=== PATIENT | female | born 1970 | race Caucasian/White ===

== ENCOUNTER 2017-07-30 10:30 | Inpatient (IN) | payer OTHER ==
[2017-07-30 12:32] VITALS: BMI 45.8
[2017-08-02] MEDS ORDERED: Fentanyl 100 MCG/2 ML VIAL ONE ×3 (06:31→14:08)
[2017-08-02] MEDS ORDERED: CEFAZOLIN/Water 2 GM/20 ML SYRINGE ONE (06:33)
[2017-08-02] MEDS ORDERED: Lidocaine 1% PF 5 ML VIAL ONE (06:51)
[2017-08-02] MEDS ORDERED: Succinylcholine Chloride 20 MG/ML 10 ml SYRINGE FS ONE (06:51)
[2017-08-02] MEDS ORDERED: PROPOFOL 200 MG/20 ML VIAL ONE (06:51)
[2017-08-02] MEDS ORDERED: Ketorolac Tromethamine 30 MG/ML VIAL ONE (06:51)
[2017-08-02] MEDS ORDERED: Ondansetron HCl/PF 4 MG/2 ML Vial ONE (06:51)
[2017-08-02] MEDS ORDERED: Metoclopramide HCl 10 MG/2 ML VIAL ONE (06:51)
[2017-08-02] MEDS ORDERED: Dexamethasone 20 MG/5 ML VIAL ONE (06:51)
[2017-08-02] MEDS ORDERED: PHENYLEPHRINE-NS 100 MCG/ML 10 ML SYRINGE ONE (06:51)
[2017-08-02] MEDS ORDERED: ePHEDrine/0.9% NaCl/PF SYRINGE 50 mg/10 ml ONE (06:51)
[2017-08-02] MEDS ORDERED: Fentanyl 100 MCG/2 ML VIAL SLOW IVP PRN (12:08)
[2017-08-02] MEDS ORDERED: HYDROcodone/Acetaminophen 10/325 mg Tablet PO PRN (12:08)
[2017-08-02] MEDS ORDERED: Bisacodyl 10 MG SUPP PR PRN (12:08)
[2017-08-02] MEDS ORDERED: Ondansetron HCl/PF 4 MG/2 ML Vial IV PRN (12:08)
[2017-08-02] MEDS ORDERED: PHARMACY TO DOSE ANTIBIOTICS FS SCH (12:15)
[2017-08-02] MEDS ORDERED: TETANUS AND DIPHTHERIA TOX/PF 0.5 ML DISP.SYRIN IM SCH (12:15)
[2017-08-02] MEDS ORDERED: PHARMACY TO DOSE ANTIBIOTICS FS PRN (12:51)
[2017-08-02] MEDS ORDERED: Ondansetron HCl/PF 4 MG/2 ML Vial IVP PRN (13:07)
[2017-08-02] MEDS ORDERED: Promethazine HCl 25 MG/ML VIAL SLOW IVP PRN (13:07)
[2017-08-02] MEDS ORDERED: Promethazine HCl 25 MG/ML VIAL IM PRN (13:07)
--- NOTE | 2017-08-02 13:36 | RAD ---
INTRAOPERATIVE FLUOROSCOPY: HISTORY: Hardware removal. COMPARISON: None. FINDINGS: Intraoperative fluoroscopy is performed, and three images are provided for interpretation. There is internal fixation hardware along the proximal left femur. There is a screw in the distal le ft femur. IMPRESSION: Fluoroscopy as above. POS: DONYA
[2017-08-02] MEDS ORDERED: CEFAZOLIN/Water 2 GM/20 ML SYRINGE SLOW IVP SCH (14:00)
[2017-08-02] MEDS: CEFAZOLIN/Water 2 GM/20 ML SYRINGE SLOW IVP SCH (15:59)
[2017-08-02] MEDS: Morphine 4 MG/ML VIAL SLOW IVP PRN (16:18)
[2017-08-02] MEDS: Ketorolac Tromethamine 30 MG/ML VIAL IVP SCH (17:51)
[2017-08-02] MEDS: Cyclobenzaprine 10 MG TAB PO PRN (22:37)
[2017-08-03] MEDS: CEFAZOLIN/Water 2 GM/20 ML SYRINGE SLOW IVP SCH (00:15)
[2017-08-03] MEDS: Ketorolac Tromethamine 30 MG/ML VIAL IVP SCH ×4 (00:15→18:16)
[2017-08-03 06:26] LABS: #Lymphocytes 1.2 thou/uL (1.20-3.40); #Monocytes 0.9 thou/uL (0.11-0.59); #Neutrophils 6.2 thou/uL (1.40-6.50); %Basophils 0.2 % (0.0-1.0); %Lymphocytes 14.4 % (21.0-51.0); %Monocytes 10.8 % (0.0-10.0); %Neutrophils 74.7 % (42.0-75.0); Mean Corpuscular Hemoglobin 28.9 pg (27.0-31.0); Mean Corpuscular Volume 87.6 fl (81.0-99.0); Mean Platelet Volume 9.7 fL (7.4-10.4); Platelet Count 166 thou/uL (130-400); RBC Distribution Width 12.8 % (11.5-14.5); Red Blood Cell (RBC) Count 2.77 mill/uL (4.20-5.40); White Blood Cell (WBC) Count 8.3 thou/uL (4.8-10.8)
[2017-08-03 06:45] LABS: ALT (SGPT) 11 U/L (8-55); AST (SGOT) 18 U/L (5-34); Albumin 2.9 g/dL (3.5-5.0); Alkaline Phosphatase 73 U/L (40-150); Anion Gap 8 mmol/L (10-20); BUN (Urea Nitrogen) 15 mg/dL (7.0-18.7); Bilirubin, Total 0.2 mg/dL (0.2-1.2); Calc. Creatinine Clearance 193 mL/min (70-130); Calcium 8.3 mg/dL (7.8-10.44); Carbon Dioxide 26 mmol/L (22-29); Chloride 105 mmol/L (98-107); Estimated GFR-MDRD 78; Globulin 1.9 g/dL (2.4-3.5); Glucose 153 mg/dL (70-105); Potassium 4.1 mmol/L (3.5-5.1); Protein, Total 4.8 g/dL (6.0-8.3); Sodium 135 mmol/L (136-145)
[2017-08-03] MEDS: Acetaminophen 325 MG TAB PO PRN ×2 (09:25→21:05)
[2017-08-03] MEDS: Cyclobenzaprine 10 MG TAB PO PRN ×2 (09:26→21:04)
[2017-08-03] MEDS: Enoxaparin Sodium 30 MG/0.3 ML SYRINGE SC SCH (09:26)
--- NOTE | 2017-08-03 10:30 | CT ---
CT OF LEFT FEMUR: CLINICAL HISTORY: Prior operative fixation of proximal femur. Clinical concern for superimposed fracture. COMPARISON: There are no recent radiographs available for reference. Radiograph of left hip from 11/18/16 is refe renced. FINDINGS: The patient had a documented heavily comminuted proximal left femoral fracture October of 2016 which is now transfixed by plate and screw fixation which results in beam-hardening artifact and streak artif act limiting reliable evaluation at the fracture site. There is periosteal reaction of the proximal diaphysis of the femur and distally, there is multifocal fragmentation of the cortex of the mid to di stal femoral diaphysis. There is a solitary linear metallic density traversing the distal femoral di aphysis and within the adjacent soft tissues. Just distal to this radiopaque screw, there is further fragmentation of the cortex of the distal femoral metadiaphyseal region, just distally. There is a small wedge-shaped avulsed fracture medially. There is a lucent track from prior hardware at the dis blessing femur. Prominent degenerative change is noted at the knee. IMPRESSION: 1. Extensive hardware of the proximal femur transfixing patient's known prior heavily comminuted fra cture with limited visualization. Fracture lucencies of this region do persist as well as areas of p eriosteal reaction and heterotopic density. 2. There is an additional linear screw within the distal diaphysis with interposed multifocal cortic al fragmentation of the medial aspect of the femur throughout the mid to distal diaphysis as well as slight cortical comminution with wedge-shaped avulsive-appearing fracture fragment just distal, withi n the metadiaphyseal region. POS: DONYA
[2017-08-03] MEDS: Morphine 4 MG/ML VIAL SLOW IVP PRN (13:58)
[2017-08-03] MEDS ORDERED: traMADol HCl 50 MG TAB PO PRN (15:13)
[2017-08-03] MEDS: traMADol HCl 50 MG TAB PO PRN ×2 (18:18→23:15)
[2017-08-04 06:02] LABS: #Eosinphils 0.1 thou/uL (0.0-0.7); #Lymphocytes 1.6 thou/uL (1.20-3.40); #Monocytes 0.6 thou/uL (0.11-0.59); #Neutrophils 4.3 thou/uL (1.40-6.50); %Basophils 0.4 % (0.0-1.0); %Lymphocytes 24.1 % (21.0-51.0); %Monocytes 8.9 % (0.0-10.0); %Neutrophils 65.6 % (42.0-75.0); Hemoglobin 7.3 g/dL (12.0-16.0); Mean Corpuscular Hemoglobin 29.3 pg (27.0-31.0); Mean Corpuscular Volume 88.9 fl (81.0-99.0); Mean Platelet Volume 9.4 fL (7.4-10.4); Platelet Count 125 thou/uL (130-400); RBC Distribution Width 12.7 % (11.5-14.5); Red Blood Cell (RBC) Count 2.48 mill/uL (4.20-5.40); White Blood Cell (WBC) Count 6.5 thou/uL (4.8-10.8)
[2017-08-04] MEDS: traMADol HCl 50 MG TAB PO PRN ×2 (06:09→20:14)
[2017-08-04] MEDS: Cyclobenzaprine 10 MG TAB PO PRN ×2 (06:12→20:14)
[2017-08-04] MEDS: Acetaminophen 325 MG TAB PO PRN (10:46)
[2017-08-04] MEDS: Morphine 4 MG/ML VIAL SLOW IVP PRN ×2 (10:47→23:23)
[2017-08-04] MEDS: Enoxaparin Sodium 30 MG/0.3 ML SYRINGE SC SCH (10:55)
[2017-08-04] MEDS: Naproxen 500 MG TAB PO PRN (12:48)
[2017-08-04] MEDS ORDERED: Enoxaparin Sodium 30 MG/0.3 ML SYRINGE SC SCH (13:00)
[2017-08-05] MEDS: Naproxen 500 MG TAB PO PRN (04:35)
[2017-08-05 05:34] LABS: #Eosinphils 0.2 thou/uL (0.0-0.7); #Lymphocytes 1.8 thou/uL (1.20-3.40); #Monocytes 0.5 thou/uL (0.11-0.59); %Basophils 0.6 % (0.0-1.0); %Monocytes 8.5 % (0.0-10.0); %Neutrophils 54.9 % (42.0-75.0); Hemoglobin 7.3 g/dL (12.0-16.0); Mean Corpuscular HGB CONC 32.6 g/dL (32.0-36.0); Mean Corpuscular Hemoglobin 28.9 pg (27.0-31.0); Mean Corpuscular Volume 88.7 fl (81.0-99.0); Mean Platelet Volume 9.5 fL (7.4-10.4); Platelet Count 146 thou/uL (130-400); RBC Distribution Width 12.5 % (11.5-14.5); Red Blood Cell (RBC) Count 2.53 mill/uL (4.20-5.40); White Blood Cell (WBC) Count 5.5 thou/uL (4.8-10.8)
[2017-08-05] MEDS: Enoxaparin Sodium 30 MG/0.3 ML SYRINGE SC SCH (07:52)
[2017-08-05] MEDS: Cyclobenzaprine 10 MG TAB PO PRN ×3 (07:54→21:29)
[2017-08-05] MEDS: traMADol HCl 50 MG TAB PO PRN ×4 (07:54→21:30)
--- NOTE | 2017-08-05 09:04 | OP ---
DATE OF SURGERY: 08/02/2017 PREOPERATIVE DIAGNOSES: 1. 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 2. Retained left trochanteric fixation nail. POSTOPERATIVE DIAGNOSES: 1. 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 2. Retained left trochanteric fixation nail. SURGICAL PROCEDURE: 1. Left proximal femur valgus osteotomy with plating (maricel osteotomy). 2. SILVANA bone graft harvest, left femur. 3. Removal of left femoral TFN nail. ANESTHESIA: General. SURGEON: Dr. Abdullahi Trejo and Dr. Chu. IMPLANTS: Synthes 6-hole 150 degree DHS sideplate with 80-mm hip screw with the addition of a trocha nter stabilization plate. SPECIMEN: Explanted Synthes TFN discarded. BLOOD LOSS: 800 mL. DRAINS: Hemovac x1. COMPLICATIONS: Retained partial screw in distal femur with small diaphyseal defect from hardware rem oval. OUTCOME: Satisfactory. INDICATIONS: Ms. Morin is a pleasant 47-year-old lady, who is status post severe left proximal femur fracture with a large subtrochanteric fracture that extended up into a basicervical fracture that piedra d a very high Pauwel's angle. She has gone on to heal her subtrochanteric femur fracture, but has a nonunion of the basicervical neck fracture, which has been confirmed with CT scan. After discussion with patient including risks and benefits, we decided to proceed with a valgus osteotomy in hopes of improving the mechanical advantage to get compression across the femoral neck fracture site as well a s bone grafting to assist with healing. Informed consent has been obtained. I believe all questions have been answered. PROCEDURE IN DETAIL: The patient was brought to the operating room and a timeout performed and then general anesthesia induced. The patient was positioned in a right lateral decubitus position and the n a sterile prep and drape was performed of the left lower extremity. Next, a small incision was mad e distally at the distal cross lock screw site. This distal screw was broken; however, the head and lateral fragment of the screw could be removed and was removed. This wound was then irrigated and cl osed with Vicryl and staple closure. Next, an incision was made proximally and basically the most pr oximal scar from her hardware removal was extended distally to incorporate the middle scar. This res ulted in an incision site of approximately 10 inches in length. After skin was sharply incised, diss ection was carried down through the fatty layer until the tensor fascia and fascia berry could be iden tified. This was incised in line with the skin incision and then a Charnley retractor was placed in the wound. Next, identification of the spiral lag device was performed and then the proximal nail wa s also freed of soft tissue. The locking mechanism for the spiral blade was disengaged and then the extractor jig was inserted onto the proximal nail. The spiral blade was then removed with the approp riate jig. The nail was then backslapped; however, it became incarcerated and this was felt to be se condary to the medial screw fragment. Attempts were made to further remove the nail; however, this w as now basically wedged in place, as such the nail was then driven back to its original starting posi tion, and with this maneuver, the lodged screw fragment was broken free of the nail and then the nail was removed with ease. Once removed, dissection was carried posterior to the greater trochanter wit h the gluteal insertions left on the tip of the trochanter and the vastus expansion left on the base of the trochanter as well. An osteotomy was then performed sparing both of the insertion sites of th e vastus and gluteal tendons. This trochanteric osteotomy was then slid anteriorly and held in place with Hohmann retractors. At this time, through the osteotomy site, the nonunion could be identified . A combination of curette and rongeur was used to remove the fibrous tissue from the nonunion. The nonunion was then fully mobilized. Some further bone was removed from the proximal femur to aid in the positioning of the valgus osteotomy. Next, a ball-tipped guidewire was passed down the shaft of the femur. This was then followed by passage of a reamer. The nail was removed with a size 11, and as such, a 12.5-mm SILVANA head was used initially. This did not achieve a great degree of bone graft, a nd as such, a second passage was performed with a 13.5 mm head. Once the bone was harvested, this wa s mixed with some debrided bone from the osteotomy site. This was then packed in the nonunion site a s well as some bone packed up into the femoral neck region where the spiral blade had been removed. Once the bone graft was fully packed in place, the path of the spiral blade was exploited and a [employer] ded guidewire was passed down this path. This was followed by passage of a reamer and then a tap. N ext, an 80-mm hip screw was inserted up into the femoral neck with excellent bony purchase. This jig was attached to the 150-degree 6-hole sideplate. Next, the neck was brought into a valgus alignment and the plate affixed to the proximal femur with six 4.5-mm cortical screws. It should be noted antwan t this plate was fixed to the subtrochanteric fracture site, but did have excellent purchase of the s crews with some of the screws being unicortical, as it was felt they were passing through the actual former fracture site. Once affixed, AP and lateral C-arm images were obtained that showed 150-degree valgus osteotomy with some good apposition of the femoral neck to the proximal femur. The C-arm was then brought further distally and indeed the medial screw fragment had migrated proximally and there did appear to be a linear lucency in the posterior medial aspect of the distal femoral cortex; howev er, this did not appear to be a fracture that had fully propagated either proximally or distally. Ne xt, the wound was thoroughly irrigated with Pulsavac. A trochanteric stabilization extension was att ached to the DHS plate. This was done before the proximal 4 screws were inserted. Once attached, th is plate was used to fix the trochanteric osteotomy in place with 3 additional screws through the pro ximal most limb of the plate. Once fully fixed, final x-rays were obtained, and this showed excellen t alignment of both the osteotomy repair as well as the femoral neck region. Next, the wound was dina sed over Hemovac drain with #1 Vicryl for the fascia berry and tensor fascia, #1 Vicryl for Rell's f ascia followed by 2-0 Vicryl and alona for the skin. A Xeroform gauze and tape dressing was applie d to the thigh and then patient was transferred to recovery room in stable condition. There were no complications. She tolerated the procedure well.
[2017-08-06] MEDS: traMADol HCl 50 MG TAB PO PRN ×4 (06:40→22:28)
[2017-08-06] MEDS: Cyclobenzaprine 10 MG TAB PO PRN ×2 (06:40→22:28)
[2017-08-06 06:57] LABS: #Eosinphils 0.2 thou/uL (0.0-0.7); #Lymphocytes 1.5 thou/uL (1.20-3.40); #Monocytes 0.4 thou/uL (0.11-0.59); #Neutrophils 2.9 thou/uL (1.40-6.50); %Eosinophils 4.3 % (0.0-10.0); %Monocytes 8.5 % (0.0-10.0); %Neutrophils 57.2 % (42.0-75.0); Hemoglobin 7.5 g/dL (12.0-16.0); Mean Corpuscular HGB CONC 32.7 g/dL (32.0-36.0); Mean Corpuscular Hemoglobin 28.8 pg (27.0-31.0); Platelet Count 185 thou/uL (130-400); RBC Distribution Width 12.7 % (11.5-14.5); Red Blood Cell (RBC) Count 2.62 mill/uL (4.20-5.40); White Blood Cell (WBC) Count 5.1 thou/uL (4.8-10.8)
[2017-08-06] MEDS: Enoxaparin Sodium 30 MG/0.3 ML SYRINGE SC SCH (08:31)
[2017-08-07] MEDS: traMADol HCl 50 MG TAB PO PRN ×4 (06:22→23:10)
[2017-08-07] MEDS: Cyclobenzaprine 10 MG TAB PO PRN ×2 (06:22→23:11)
[2017-08-07] MEDS: Enoxaparin Sodium 30 MG/0.3 ML SYRINGE SC SCH (08:27)
[2017-08-07 11:19] LABS: #Basophils 0.1 thou/uL (0.0-0.2); #Eosinphils 0.2 thou/uL (0.0-0.7); #Lymphocytes 1.5 thou/uL (1.20-3.40); #Monocytes 0.6 thou/uL (0.11-0.59); #Neutrophils 3.8 thou/uL (1.40-6.50); %Basophils 1.1 % (0.0-1.0); %Eosinophils 3.6 % (0.0-10.0); %Lymphocytes 23.9 % (21.0-51.0); %Monocytes 9.7 % (0.0-10.0); %Neutrophils 61.8 % (42.0-75.0); Hemoglobin 7.8 g/dL (12.0-16.0); Mean Corpuscular HGB CONC 33.7 g/dL (32.0-36.0); Mean Corpuscular Hemoglobin 29.8 pg (27.0-31.0); Mean Corpuscular Volume 88.2 fl (81.0-99.0); Mean Platelet Volume 8.1 fL (7.4-10.4); Platelet Count 226 thou/uL (130-400); RBC Distribution Width 12.8 % (11.5-14.5); Red Blood Cell (RBC) Count 2.61 mill/uL (4.20-5.40); White Blood Cell (WBC) Count 6.1 thou/uL (4.8-10.8)
[2017-08-08] MEDS: traMADol HCl 50 MG TAB PO PRN ×3 (05:00→16:51)
[2017-08-08] MEDS: Cyclobenzaprine 10 MG TAB PO PRN ×2 (09:14→16:51)
[2017-08-08] MEDS: Enoxaparin Sodium 30 MG/0.3 ML SYRINGE SC SCH (09:18)
[2017-08-08 11:46] LABS: #Basophils 0.1 thou/uL (0.0-0.2); #Eosinphils 0.2 thou/uL (0.0-0.7); #Lymphocytes 1.4 thou/uL (1.20-3.40); #Monocytes 0.5 thou/uL (0.11-0.59); #Neutrophils 4.4 thou/uL (1.40-6.50); %Basophils 1.2 % (0.0-1.0); %Eosinophils 3.2 % (0.0-10.0); %Lymphocytes 20.8 % (21.0-51.0); %Monocytes 6.8 % (0.0-10.0); Hemoglobin 8.2 g/dL (12.0-16.0); Mean Corpuscular HGB CONC 32.9 g/dL (32.0-36.0); Mean Corpuscular Volume 88.3 fl (81.0-99.0); Mean Platelet Volume 8.2 fL (7.4-10.4); Platelet Count 256 thou/uL (130-400); RBC Distribution Width 12.9 % (11.5-14.5); Red Blood Cell (RBC) Count 2.81 mill/uL (4.20-5.40); White Blood Cell (WBC) Count 6.5 thou/uL (4.8-10.8)
[2017-08-08 15:45] VITALS: BP 102/65; TEMP 98.2
--- NOTE | 2017-08-09 12:51 | DIS ---
DATE OF ADMISSION: 08/02/2017 DATE OF DISCHARGE: 08/08/2017 DISCHARGE DISPOSITION: To inpatient rehabilitation. ADMISSION DIAGNOSES: 1. Healed left closed subtrochanteric femur fracture with a femoral based neck nonunion. 2. Retained symptomatic hardware, left hip in the form of a long trochanteric nail. DISCHARGE DIAGNOSES: 1. Healed left closed subtrochanteric femur fracture with a femoral based neck nonunion. 2. Retained symptomatic hardware, left hip in the form of a long trochanteric nail. OPERATIVE PROCEDURES: 1. Explantation left femoral transfemoral nail. 2. Transfemoral intramedullary bone harvest. 3. Opening wedge valgus osteotomy. 4. Left proximal femur with dynamic hip screw placement utilizing Synthes 6-hole 150 degree DHS. BRIEF CLINICAL HISTORY: Kerrie is a 46-year-old female who sustained a severely comminuted anterior/s ubtrochanteric hip fracture after a horse fell on her. She underwent closed reduction with long edge sfemoral nail fixation on her initial visit on 10/2016. She has gone onto nonunion and she has been admitted at this time for revision explantation of hardware of the left hip. She underwent the above procedure on date of admission without intra, rob, or postoperative complication. Her hospital cou rse was significant for slow progress at rehabilitation and activities of daily living; therefore, it was elected to send her for inpatient rehabilitation and continued efforts to ADLs. At the time of transfer, the patient is afebrile. She is ambulatory without assistance, tolerating a regular diet, and voiding. Her incision is clean with alona are intact. DISCHARGE MEDICATIONS: Please see medication reconciliation form. We will be happy to see the patient on an as needed basis between now and her next scheduled appointm ent in 10-12 days for staple removal. CONDITION ON TRANSFER: Stable. PROGNOSIS: Good.
== END 2017-08-08 18:06 | DRG 481 ==
LOC: SURG A 08-02 06:13 → SJJU 08-02 14:45
PROVIDERS: ADMIT Orthopaedic Surgery; ATTEND Orthopaedic Surgery
PROC: 0QP704Z Removal of Internal Fixation Device from Left Upper Femur, Open Approach (ICD-10-PCS; principal; 2017-08-02)
PROC: 0QR Lower Bones, Replacement (ICD-10-PCS; 2017-08-02)
PROC: 0QB70ZZ Excision of Left Upper Femur, Open Approach (ICD-10-PCS; 2017-08-02)
PROC: 0QH704Z Insertion of Internal Fixation Device into Left Upper Femur, Open Approach (ICD-10-PCS; 2017-08-02)
DX: S72.22XK Displaced subtrochanteric fracture of left femur, subsequent encounter for closed fracture with nonunion (principal); M96.89 Other intraoperative and postprocedural complications and disorders of the musculoskeletal system; Z98.890 Other specified postprocedural states; T84.195A Other mechanical complication of internal fixation device of left femur, initial encounter
CPT/HCPCS: 36415; 76001; 80053; 85025; 85027; 87070; 87081; 87205; C1713; C1769; G8978-GP-CL; G8979-GP-CJ; G8987-GO-CL; G8988-GO-CI; J0131; J1100; J1170; J1650; J1885; J2001; J2270; J2405; J2704; J2765; J3010; L1832